=== PATIENT | male | born 1990 | race African-American/Black ===

== ENCOUNTER 2024-08-13 15:54 | Emergency (ER) | payer SELFPAY ==
[2024-08-13 17:00] LABS: #Basophils 0.02 10x3/uL (0.0-0.2); #Eosinophils 0.17 10x3/uL (0.0-0.5); #Monocytes 0.43 10x3/uL (0.0-1.1); #Neutrophils 3.61 10x3/uL (1.5-8.4); %Basophils 0.3 % (0.0-2.0); %Eosinophils 2.7 % (0.0-6.0); %Lymphocytes 31.5 % (18.0-47.0); %Monocytes 6.9 % (0.0-10.0); %Neutrophils 58.4 % (40.0-75.0); Hematocrit 41.5 % (38.8-50.0); Hemoglobin 13.9 g/dL (13.5-17.5); Mean Corpuscular HGB CONC 33.5 g/dL (32.0-36.0); Mean Corpuscular Hemoglobin 26.9 pg (27.0-33.0); Mean Corpuscular Volume 80.3 fL (81.2-95.1); Mean Platelet Volume 8.6 fL (7.4-10.4); Platelet Count 285 10x3/uL (150-450); RBC Distribution Width 13.2 % (11.5-14.5); Red Blood Cell (RBC) Count 5.17 10x6/uL (4.32-5.72); White Blood Cell (WBC) Count 6.2 10x3/uL (3.5-10.5)
[2024-08-13 17:17] LABS: Troponin I Less than 0.010 ng/mL (< 0.028)
[2024-08-13 17:18] LABS: ALT (SGPT) 45 U/L (8-55); AST (SGOT) 32 U/L (5-34); Albumin 3.8 g/dL (3.5-5.0); Alkaline Phosphatase 61 U/L (40-110); Anion Gap 14 mmol/L (10-20); BUN (Urea Nitrogen) 16 mg/dL (8.9-20.6); Bilirubin, Total 1.4 mg/dL (0.2-1.2); Calc. Creatinine Clearance 0 mL/min (70-130); Calcium 9.5 mg/dL (7.8-10.44); Carbon Dioxide 22 mmol/L (22-29); Chloride 107 mmol/L (98-107); Estimated GFR 76; Globulin 3.5 g/dL (2.4-3.5); Glucose 102 mg/dL (70-105); Magnesium 1.9 mg/dL (1.6-2.6); Potassium 4.1 mmol/L (3.5-5.1); Protein, Total 7.3 g/dL (6.0-8.3); Sodium 139 mmol/L (136-145)
== END 2024-08-13 17:43 | disposition home or self-care (01) ==
LOC: CSHERS 15:54
DX: R00.2 Palpitations (principal)
CPT/HCPCS: 36415; 71045; 80053; 83735; 84484; 85025; 93005

== ENCOUNTER 2024-08-15 06:24 | Emergency (ER) | payer SELFPAY ==
[2024-08-15 07:18] LABS: #Basophils 0.02 10x3/uL (0.0-0.2); #Eosinophils 0.09 10x3/uL (0.0-0.5); #Monocytes 0.34 10x3/uL (0.0-1.1); #Neutrophils 2.88 10x3/uL (1.5-8.4); %Basophils 0.4 % (0.0-2.0); %Eosinophils 1.9 % (0.0-6.0); %Lymphocytes 30.1 % (18.0-47.0); %Monocytes 7.1 % (0.0-10.0); %Neutrophils 60.3 % (40.0-75.0); Hematocrit 42.4 % (38.8-50.0); Hemoglobin 14.3 g/dL (13.5-17.5); Mean Corpuscular HGB CONC 33.7 g/dL (32.0-36.0); Mean Corpuscular Hemoglobin 26.6 pg (27.0-33.0); Mean Platelet Volume 8.3 fL (7.4-10.4); Platelet Count 266 10x3/uL (150-450); RBC Distribution Width 13.2 % (11.5-14.5); Red Blood Cell (RBC) Count 5.37 10x6/uL (4.32-5.72); White Blood Cell (WBC) Count 4.8 10x3/uL (3.5-10.5)
[2024-08-15 07:31] LABS: Phosphorus 2.7 mg/dL (2.3-4.7)
[2024-08-15 07:33] LABS: ALT (SGPT) 50 U/L (8-55); AST (SGOT) 46 U/L (5-34); Albumin 3.8 g/dL (3.5-5.0); Alkaline Phosphatase 61 U/L (40-110); Anion Gap 15 mmol/L (10-20); BUN (Urea Nitrogen) 13 mg/dL (8.9-20.6); Bilirubin, Total 1.3 mg/dL (0.2-1.2); Calc. Creatinine Clearance 0 mL/min (70-130); Calcium 9.4 mg/dL (7.8-10.44); Carbon Dioxide 20 mmol/L (22-29); Chloride 107 mmol/L (98-107); Estimated GFR 95; Globulin 3.6 g/dL (2.4-3.5); Glucose 111 mg/dL (70-105); Magnesium 1.8 mg/dL (1.6-2.6); Potassium 4.4 mmol/L (3.5-5.1); Protein, Total 7.4 g/dL (6.0-8.3); Sodium 138 mmol/L (136-145)
[2024-08-15 07:48] LABS: Amphetamine Not Detected (NotDetected); Barbiturates Screen Not Detected (NotDetected); Benzodiazepine Screen Not Detected (NotDetected); Cocaine Metabolite Screen Not Detected (NotDetected); Methadone Not Detected (NotDetected); Methamphetamine Not Detected (NotDetected); Opiate Screen Not Detected (NotDetected); Oxycodone Screen Not Detected (NotDetected); Phencyclidine (PCP) Not Detected (NotDetected); THC/Cannabinoid Screen Not Detected (NotDetected); Tricyclic Screen Not Detected (NotDetected)
== END 2024-08-15 09:02 | disposition home or self-care (01) ==
LOC: CSHERS 06:24
DX: I47.10 Supraventricular tachycardia, unspecified (principal); I10 Essential (primary) hypertension
CPT/HCPCS: 80053; 80306; 83735; 84100; 84443; 85025; 93005; 99285

== ENCOUNTER → 2024-09-17 | Emergency (ER) | payer SELFPAY | LOC: CSHERS 16:56 | DX: Z76.0 Encounter for issue of repeat prescription (principal); I10 Essential (primary) hypertension | CPT/HCPCS: 99281 ==

== ENCOUNTER → 2024-10-17 | Emergency (ER) | payer SELFPAY | LOC: CSHERS 14:06 | DX: Z76.0 Encounter for issue of repeat prescription (principal); I10 Essential (primary) hypertension | CPT/HCPCS: 99281 ==